=== PATIENT | female | born 1955 | race Caucasian/White ===

== ENCOUNTER 2018-11-18 07:44 | Emergency (ER) | payer OTHER ==
[~2018-11-18] VITALS: Ht 160 cm; Wt 90.7 kg
[~2018-11-18 07:44] MED LIST: ASPIRIN325 MG PO; ATENOLOL50 MG PO; CEFDINIR300 MG PO; ISOSORBIDE DINI20 MG PO; LISINOPRIL10 MG PO; MELOXICAM7.5 MG PO; METOPROLOL SUCC50 MG PO; NEXIUM40 MG; PRAVASTATIN SOD80 MG PO; SIMVASTATIN40 MG PO; ZOFRAN ODT4 MG SL
--- OUTSIDE RECORDS SUMMARY | 2018-11-18 07:46 | XMS REPORT | Summary of Care ---
Author Organization Unknown Address Unknown Phone Unavailable Encounter HQ Didi(JAYME) [id number] Date(s): 09/30/14 - 09/30/14 [facility] [address] [address] - [facility] Discharge Diagnosis: Wound infection Discharge Disposition: Home Physician Attending: Eldon Earl MD Reason for Visit CHECK UP STICHES Vital Signs Most recent to 1 2 oldest [Reference Range]: Height 160.02 cm (09/30/14 1:39 PM) Temperature Oral 97.9 DegF 97.9 DegF [96.4-99.1 DegF] (09/30/14 3:30 PM) (09/30/14 1:39 PM) Systolic Blood 145 mmHg 161 mmHg Pressure [90-140 *HI* *HI* mmHg] (09/30/14 3:30 PM) (09/30/14 1:39 PM) Diastolic Blood 85 mmHg 108 mmHg Pressure [60-90 (09/30/14 3:30 PM) *HI* mmHg] (09/30/14 1:39 PM) Respiratory Rate 18 BRMIN 18 BRMIN [14-20 BRMIN] (09/30/14 3:30 PM) (09/30/14 1:39 PM) Peripheral Pulse 85 bpm 92 bpm Rate [60-100 bpm] (09/30/14 3:30 PM) (09/30/14 1:39 PM) Weight 90.909 kg (09/30/14 1:39 PM) Body Mass Index 35.5 m2 (09/30/14 1:39 PM) Problem List Condition Effective Dates Status Health Status Informant Anxiety(Confirmed) Resolved COPD(Confirmed) Resolved Hypercholesteremia(C Resolved onfirmed) Hypertension(Confirm Resolved ed) Myocardial Resolved infarction(Confirmed ) Allergies, Adverse Reactions, Alerts Substance Reaction Severity Status penicillins Active tetanus toxoid Active Medications Bactrim DS oral tablet 1 tab, PO, BID, # 28 tab, 0 Refill(s) Start Date: 09/30/14 Stop Date: 10/14/14 Status: Ordered Medications Administered During Your Visit No data available for this section Immunizations No data available for this section Social History Social History Type Response Smoking Status Current every day smoker, Type: Cigarettes, Exposure to Tobacco Smoke None, Cigarette Smoking Last 365 Days Yes, Reg Smoking Cessation Counseling No
--- OUTSIDE RECORDS SUMMARY | 2018-11-18 07:46 | XMS REPORT | Summary of Care ---
Author Author [facility] Organization [facility] Address Unknown Phone Unavailable Encounter KLEBER Tolbert(JAYME) [id number] Date(s): 06/25/17 - 06/25/17 [facility] [address] [place] [address]- Discharge Diagnosis: Chronic lower urinary tract infection Discharge Disposition: Home or Self Care Attending Physician: Sesar Amaral DO Vital Signs Most recent to 1 2 oldest [Reference Range]: Temperature Oral 98.5 DegF 98.5 DegF [96.4-99.1 DegF] (06/25/17 2:20 PM) (06/25/17 10:24 AM) Blood Pressure 168/105 mmHg 137/92 mmHg [90-140/60-90 mmHg] *HI* (06/25/17 10:24 AM) (06/25/17 2:20 PM) Respiratory Rate 20 BRMIN 17 BRMIN [14-20 BRMIN] (06/25/17 2:20 PM) (06/25/17 10:24 AM) Peripheral Pulse 94 bpm 120 bpm Rate [60-100 bpm] (06/25/17 2:20 PM) *HI* (06/25/17 10:24 AM) Weight 93.182 kg (06/25/17 10:24 AM) Problem List Condition Effective Dates Status Health Status Informant Anxiety(Confirmed) Resolved COPD(Confirmed) Resolved Hypercholesteremia(C Resolved onfirmed) Hypertension(Confirm Resolved ed) Myocardial Resolved infarction(Confirmed ) Allergies, Adverse Reactions, Alerts Substance Reaction Severity Status penicillins Active tetanus toxoid Active Medications ciprofloxacin 500 mg oral tablet 500 mg=1 tab, PO, Q12H, X 10 day, # 20 tab, 0 Refill(s) Start Date: 06/25/17 Stop Date: 07/05/17 Status: Ordered Debrox 6.5% otic solution 5 drp, Route: LEFT EAR, TID, Drug form: SOLN, Start date: 06/25/17 17:00:00 CDT, Duration: 30 day, Stop date: 07/25/17 13:00:00 CDT Notes: (carbamide peroxide 6.5% 15 ml otic SOLN) (Same As: Debrox) Start Date: 06/25/17 Stop Date: 06/25/17 Status: Discontinued Debrox 6.5% otic solution 5 drp, LEFT EAR, TID, X 7 day, # 30 mL, 0 Refill(s) Start Date: 06/25/17 Stop Date: 07/02/17 Status: Ordered Keflex 500 mg oral capsule 500 mg=1 cap, PO, BID, X 10 day, # 20 cap, 0 Refill(s) Start Date: 06/25/17 Stop Date: 07/05/17 Status: Ordered Pyridium 100 mg oral tablet 100 mg=1 tab, PO, TID, PRN Dysuria, X 2 day, # 6 tab, 0 Refill(s) Start Date: 06/25/17 Stop Date: 06/27/17 Status: Completed Pyridium 200 mg oral tablet 200 mg=1 tab, PO, TID, PRN Dysuria, X 2 day, # 6 tab, 0 Refill(s) Start Date: 06/25/17 Stop Date: 06/27/17 Status: Completed Results ELECTROLYTES Most recent to 1 oldest [Reference Range]: Sodium Lvl [135-145 142 mEq/L mEq/L] (06/25/17 11:35 AM) Potassium Lvl 3.6 mEq/L [3.5-5.1 mEq/L] (06/25/17 11:35 AM) Chloride Lvl [95-109 108 mEq/L mEq/L] (06/25/17 11:35 AM) CO2 [24-32 mEq/L] 26 mEq/L (06/25/17 11:35 AM) AGAP [10.0-20.0 11.6 mEq/L mEq/L] (06/25/17 11:35 AM) CHEM PANEL Most recent to 1 oldest [Reference Range]: Creatinine Lvl 0.87 mg/dL [0.50-1.40 mg/dL] (06/25/17 11:35 AM) eGFR 73 mL/min/1.73m2 1 *NA* (06/25/17:35 AM) BUN [7-22 mg/dL] 14 mg/dL (06/25/17 11:35 AM) B/C Ratio [6-25] 16 (06/25/17 11:35 AM) Glucose Lvl [70-99 98 mg/dL mg/dL] (06/25/17:35 AM) Total Protein 7.9 g/dL [6.4-8.4 g/dL] (06/25/17 11:35 AM) Albumin Lvl [3.5-5.0 3.3 g/dL g/dL] *LOW* (06/25/17:35 AM) Globulin [2.7-4.2 4.6 g/dL g/dL] *HI* (06/25/17:35 AM) A/G Ratio [0.7-1.6] 0.7 (06/25/17:35 AM) Calcium Lvl 9.5 mg/dL [8.5-10.5 mg/dL] (06/25/17 11:35 AM) ALT [0-65 unit/L] 25 unit/L (06/25/17 11:35 AM) AST [0-37 unit/L] 27 unit/L (06/25/17 11:35 AM) Alk Phos [39-136 105 unit/L unit/L] (06/25/17 11:35 AM) Bili Total [0.2-1.3 0.4 mg/dL mg/dL] (06/25/17 11:35 AM) 1Result Comment: The eGFR is calculated using the CKD-EPI formula. In most young, healthy individuals the eGFR will be >90 mL/min/1.73m2. The eGFR declines with age. An eGFR of 60-89 may be normal in some populations, particularly the elderly, for whom the CKD-EPI formula has not been extensively validated. Use of the eGFR is not recommended in the following populations: Individuals with unstable creatinine concentrations, including patients and those with serious co-morbid conditions. Patients with extremes in muscle mass or diet. The data above are obtained from the National Kidney Disease Education Program ( NKDEP) which additionally recommends that when the eGFR is used in patients with extremes of body mass index for purposes of drug dosing, the eGFR should be mul tiplied by the estimated BMI. URINE AND STOOL Most recent to 1 oldest [Reference Range]: UA Turbidity [Clear] Marked *ABN* (06/25/17 11:35 AM) UA Color [Yellow] Yellow *NA* (06/25/17 11:35 AM) UA pH [5.0-8.0] 6.0 (06/25/17 11:35 AM) UA Spec Grav 1.026 [<=1.030] (06/25/17 11:35 AM) UA Glucose [Negative Negative mg/dL mg/dL] *NA* (06/25/17 11:35 AM) UA Blood [Negative] Small *ABN* (06/25/17 11:35 AM) UA Ketones [Negative Negative mg/dL mg/dL] *NA* (06/25/17 11:35 AM) UA Protein [Negative 100 mg/dL mg/dL] *ABN* (06/25/17 11:35 AM) UA Urobilinogen <=1.0 mg/dL [0.1-1.0 mg/dL] *NA* (06/25/17 11:35 AM) UA Bili [Negative] Negative *NA* (06/25/17 11:35 AM) UA Leuk Est Large [Negative] *ABN* (06/25/17 11:35 AM) UA Nitrite Positive [Negative] *ABN* (06/25/17 11:35 AM) UA WBC [0-5 /HPF] >182 /HPF *HI* (06/25/17 11:35 AM) UA RBC [0-2 /HPF] 22 /HPF *HI* (06/25/17 11:35 AM) UA Bacteria [None Many /HPF Seen /HPF] *ABN* (06/25/17 11:35 AM) UA Sq Epi [Few /LPF] Many /LPF *ABN* (06/25/17 11:35 AM) UA Mucus [None Seen Few /LPF /LPF] *NA* (06/25/17 11:35 AM) UA [place] Yeast [None Occasional /HPF Seen /HPF] *ABN* (06/25/17 11:35 AM) HEMATOLOGY Most recent to 1 oldest [Reference Range]: WBC [3.7-10.4 K/CMM] 8.3 K/CMM (06/25/17 11:35 AM) RBC [4.20-5.40 4.21 M/CMM M/CMM] (06/25/17 11:35 AM) Hgb [12.0-16.0 g/dL] 13.0 g/dL (06/25/17:35 AM) Hct [36.0-48.0 %] 38.7 % (06/25/17:35 AM) MCV [80.0-98.0 fL] 91.7 fL (06/25/17:35 AM) MCH [27.0-31.0 pg] 30.8 pg (06/25/17:35 AM) MCHC [32.0-36.0 33.6 g/dL g/dL] (06/25/17 11:35 AM) RDW [11.5-14.5 %] 13.0 % (06/25/17:35 AM) Platelet [133-450 268 K/CMM K/CMM] (06/25/17 11:35 AM) MPV [7.4-10.4 fL] 8.6 fL (06/25/17 11:35 AM) Segs [45.0-75.0 %] 48.9 % (06/25/17 11:35 AM) Lymphocytes 36.8 % [20.0-40.0 %] (06/25/17 11:35 AM) Monocytes [2.0-12.0 8.4 % %] (06/25/17 11:35 AM) Eosinophils [0.0-4.0 5.2 % %] *HI* (06/25/17 11:35 AM) Basophils [0.0-1.0 0.7 % %] (06/25/17 11:35 AM) Segs-Bands # 4.0 K/CMM [1.5-8.1 K/CMM] (06/25/17 11:35 AM) Lymphocytes # 3.0 K/CMM [1.0-5.5 K/CMM] (06/25/17 11:35 AM) Monocytes # [0.0-0.8 0.7 K/CMM K/CMM] (06/25/17 11:35 AM) Eosinophils # 0.4 K/CMM [0.0-0.5 K/CMM] (06/25/17 11:35 AM) Basophils # [0.0-0.2 0.1 K/CMM K/CMM] (06/25/17 11:35 AM) Immunizations No data available for this section Procedures No data available for this section Social History Social History Type Response Smoking Status Current every day smoker; Type: Cigarettes; Tobacco use per day: 20; Exposure to Tobacco Smoke None; Cigarette Smoking Last 365 Days Yes; Reg Smoking Cessation Counseling No Assessment and Plan No data available for this section
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
--- OUTSIDE RECORDS SUMMARY | 2018-11-18 07:46 | XMS REPORT | Summary of Care ---
Author Author [facility] Organization [facility] Address Unknown Phone Unavailable Encounter HQ Didi(FIN) [id number] Date(s): 04/12/18 - 04/12/18 [facility] [address] [place] [address]- Encounter Diagnosis Hip osteoarthritis (Discharge Diagnosis) - 04/12/18 Chronic right hip pain (Discharge Diagnosis) - 04/12/18 Discharge Disposition: Home or Self Care Attending Physician: Adolph Rosa MD Vital Signs Most recent to 1 2 oldest [Reference Range]: Height 160.02 cm (04/12/18 1:55 PM) Temperature Oral 98.4 DegF [96.4-99.1 DegF] (04/12/18 1:55 PM) Blood Pressure 165/95 mmHg 130/83 mmHg [90-140/60-90 mmHg] *HI* (04/12/18 1:55 PM) (04/12/18 4:21 PM) Respiratory Rate 17 BRMIN 18 BRMIN [14-20 BRMIN] (04/12/18 4:21 PM) (04/12/18 1:55 PM) Peripheral Pulse 67 bpm 71 bpm Rate [60-100 bpm] (04/12/18 4:21 PM) (04/12/18 1:55 PM) Weight 90.909 kg (04/12/18 1:55 PM) Body Mass Index 35.5 m2 (04/12/18 1:55 PM) Problem List Condition Effective Dates Status Health Status Informant Anxiety(Confirmed) Resolved COPD(Confirmed) Resolved Hypercholesteremia(C Resolved onfirmed) Hypertension(Confirm Resolved ed) Myocardial Resolved infarction(Confirmed ) Allergies, Adverse Reactions, Alerts Substance Reaction Severity Status penicillins Active tetanus toxoid Active Medications Colace 100 mg oral capsule 100 mg=1 cap, PO, BID, PRN Constipation, # 20 cap, 0 Refill(s) Start Date: 04/12/18 Status: Ordered ketOROLAC 30 mg, Route: IM, Drug form: INJ, ONCE, Dosing Weight 90.909, kg, Priority: STAT , Start date: 04/12/18 15:33:00 CDT, Stop date: 04/12/18 15:33:00 CDT Start Date: 04/12/18 Stop Date: 04/12/18 Status: Completed Tylenol with Codeine #3 oral tablet 1 tab, PO, Q4H, PRN Pain, X 2 day, # 30 tab, 0 Refill(s) Start Date: 04/12/18 Stop Date: 04/14/18 Status: Completed Results No data available for this section Immunizations No data available for this section Procedures No data available for this section Social History Social History Type Response Smoking Status Current every day smoker; Type: Cigarettes; Exposure to Tobacco Smoke None; Cigarette Smoking Last 365 Days Yes; Reg Smoking Cessation Counseling No; Tobacco use per day: 20; entered on: 04/12/18 Assessment and Plan No data available for this section
--- OUTSIDE RECORDS SUMMARY | 2018-11-18 07:46 | XMS REPORT | Summary of Care ---
Author Author [facility] Organization [facility] Address Unknown Phone Unavailable Encounter HQ Didi(FIN) [id number] Date(s): 10/31/17 - 11/01/17 [facility] [address] [place] [address]- Encounter Diagnosis Chronic hip pain (Discharge Diagnosis) - 11/01/17 Pain in right hip (Final) - 11/06/17 Other chronic pain (Final) - Nicotine dependence, cigarettes, uncomplicated (Final) - Discharge Disposition: Home or Self Care Attending Physician: Mohinder Wharton MD Vital Signs Most recent to 1 2 oldest [Reference Range]: Height 160.02 cm (10/31/17 8:29 PM) Temperature Oral 98.3 DegF 98.1 DegF [96.4-99.1 DegF] (11/01/17 12:49 AM) (10/31/17 8:29 PM) Blood Pressure 151/86 mmHg 159/97 mmHg [90-140/60-90 mmHg] *HI* *HI* (11/01/17 12:49 AM) (10/31/17 8:29 PM) Respiratory Rate 16 BRMIN 18 BRMIN [14-20 BRMIN] (11/01/17 12:49 AM) (10/31/17 8:29 PM) Peripheral Pulse 71 bpm 76 bpm Rate [60-100 bpm] (11/01/17 12:49 AM) (10/31/17 8:29 PM) Weight 106.818 kg (10/31/17 8:29 PM) Body Mass Index 41.72 m2 (10/31/17 8:29 PM) Problem List Condition Effective Dates Status Health Status Informant Anxiety(Confirmed) Resolved COPD(Confirmed) Resolved Hypercholesteremia(C Resolved onfirmed) Hypertension(Confirm Resolved ed) Myocardial Resolved infarction(Confirmed ) Allergies, Adverse Reactions, Alerts Substance Reaction Severity Status penicillins Active tetanus toxoid Active Medications acetaminophen-codeine #3 1 tab, Route: PO, Dosing Weight 106.818, kg, ONCE, STAT, Start date: 11/01/17 1: 10:00 STONE HAND, Stop date: 11/01/17 1:10:00 STONE HAND Start Date: 11/01/17 Stop Date: 11/01/17 Status: Completed dexamethasone 10 mg, Route: IM, ONCE, Dosing Weight 106.818, kg, Priority: STAT, Start date: 0 11/01/17 1:09:00 STONE HAND, Stop date: 11/01/17 1:09:00 STONE HAND Start Date: 11/01/17 Stop Date: 11/01/17 Status: Completed ketOROLAC 60 mg, Route: IM, ONCE, Dosing Weight 106.818, kg, Priority: STAT, Start date: 0 11/01/17 1:09:00 STONE HAND, Stop date: 11/01/17 1:09:00 STONE HAND Start Date: 11/01/17 Stop Date: 11/01/17 Status: Completed naproxen 375 mg oral enteric coated delayed-release tablet 375 mg=1 tab, PO, BID, PRN as needed for pain, X 5 day, # 10 tab, 0 Refill(s) Start Date: 11/01/17 Stop Date: 11/06/17 Status: Completed Ultram 50 mg oral tablet 50 mg=1 tab, PO, Q6H, PRN pain, X 4 day, # 16 tab, 0 Refill(s) Start Date: 11/01/17 Stop Date: 11/05/17 Status: Completed Results No data available for this section Immunizations No data available for this section Procedures No data available for this section Social History Social History Type Response Smoking Status Type: Cigarettes; Exposure to Tobacco Smoke None; Cigarette Smoking Last 365 Days Yes; Reg Smoking Cessation Counseling No; Current every day smoker; Tobacco use per day: 20; entered on: 11/01/17 Assessment and Plan No data available for this section
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
--- OUTSIDE RECORDS SUMMARY | 2018-11-18 07:46 | XMS REPORT | Summary of Care ---
Author Author [facility] Organization [facility] Address Unknown Phone Unavailable Encounter HQ Didi(JAYME) [id number] Date(s): 09/15/17 - 09/15/17 [facility] [id number] [place] [address]- Discharge Diagnosis: Sprain of ligaments of lumbar spine, initial encounter Discharge Disposition: Home or Self Care Attending Physician: Mk Cooley DO Vital Signs Most recent to 1 oldest [Reference Range]: Temperature Oral 98.2 DegF [96.4-99.1 DegF] (09/15/17 5:57 AM) Blood Pressure 136/78 mmHg [90-140/60-90 mmHg] (09/15/17 5:57 AM) Respiratory Rate 16 BRMIN [14-20 BRMIN] (09/15/17 5:57 AM) Peripheral Pulse 67 bpm Rate [60-100 bpm] (09/15/17 5:57 AM) Problem List Condition Effective Dates Status Health Status Informant Anxiety(Confirmed) Resolved COPD(Confirmed) Resolved Hypercholesteremia(C Resolved onfirmed) Hypertension(Confirm Resolved ed) Myocardial Resolved infarction(Confirmed ) Allergies, Adverse Reactions, Alerts Substance Reaction Severity Status penicillins Active tetanus toxoid Active Medications dexamethasone 8 mg, Route: IM, ONCE, Dosing Weight 93.182, kg, Priority: STAT, Start date: 01/27 7:34:00 [employer], Stop date: 09/15/17 7:34:00 [employer] Start Date: 09/15/17 Stop Date: 09/15/17 Status: Completed Flexeril 10 mg, Route: PO, ONCE, Dosing Weight 93.182, kg, Priority: STAT, Start date: 7:34:00 [employer], Stop date: 09/15/17 7:34:00 [employer] Start Date: 09/15/17 Stop Date: 09/15/17 Status: Completed Flexeril 10 mg oral tablet 10 mg, PO, TID, PRN Muscle Spasm, X 7 day, # 30 tab, 0 Refill(s) Start Date: 09/15/17 Stop Date: 09/22/17 Status: Ordered ketOROLAC 10 mg oral tablet 10 mg=1 tab, PO, TID, PRN Pain, X 5 day, # 15 tab, 0 Refill(s) Start Date: 09/15/17 Stop Date: 09/20/17 Status: Ordered ketOROLAC 30 mg/mL injectable solution 30 mg, Route: IM, Drug form: INJ, ONCE, Dosing Weight 93.182, kg, Priority: STAT , Start date: 09/15/17 7:34:00 [employer], Stop date: 09/15/17 7:34:00 [employer] Start Date: 09/15/17 Stop Date: 09/15/17 Status: Completed meclizine 50 mg, Route: PO, Drug form: TAB, ONCE, Dosing Weight 93.182, kg, Priority: STAT , Start date: 09/15/17 8:58:00 [employer], Stop date: 09/15/17 8:58:00 [employer] Start Date: 09/15/17 Stop Date: 09/15/17 Status: Discontinued Ogema 5/325 oral tablet 1 tab, Route: PO, Drug Form: TAB, Dosing Weight 93.182, kg, ONCE, STAT, Start da te: 09/15/17 7:34:00 [employer], Stop date: 09/15/17 7:34:00 [employer] Start Date: 09/15/17 Stop Date: 09/15/17 Status: Completed Results No data available for this section Immunizations No data available for this section Procedures No data available for this section Social History Social History Type Response Smoking Status Current every day smoker; Type: Cigarettes; Exposure to Tobacco Smoke None; Cigarette Smoking Last 365 Days Yes; Reg Smoking Cessation Counseling No; Tobacco use per day: 20; Assessment and Plan No data available for this section
[2018-11-18] MEDS ORDERED: KETOROLAC TROMETHAMINE 60 MG/2 ML VIAL IM ONE (08:15)
[2018-11-18] MEDS ORDERED: ULTRAM50 MG PO (08:50)
[2018-11-18] MEDS ORDERED: HYDROCODONE/APAP 10MG-325MG TAB PO ONE (09:00)
[2018-11-18 09:24] VITALS: BP 129/90
== END 2018-11-18 09:10 | disposition home or self-care (01) ==
LOC: ER 07:44
DX: M25.561 Pain in right knee (principal); G89.29 Other chronic pain
CPT/HCPCS: 99283; J1885

== ENCOUNTER 2019-02-07 06:16 | Emergency (ER) | payer OTHER ==
[~2019-02-07] VITALS: Ht 160 cm; Wt 90.7 kg
[~2019-02-07 06:16] MED LIST changes: +ULTRAM50 MG PO
--- OUTSIDE RECORDS SUMMARY | 2019-02-07 06:18 | XMS REPORT | Continuity of Care Document ---
Author Author [facility] Interface Address Unknown Phone Unavailable Problems Problem Status Onset Date Classification Date Reported Comments Source Medications Medication Details Route Status Patient Instructions Ordering Provider Order Date Source Tramadol Hcl (Ultram) 50 Mg Tablet Every 6 Hours as needed for Pain Active Munir 11/18/2018 [facility] Atenolol 50 Mg Tablet, 100 Mg Oral Daily Active 08/10/2017 [facility] Cefdinir (Omnicef) 300 Mg Capsule, 300 Mg Oral Twice A Day Active 08/10/2017 [facility] Ondansetron (Zofran Odt) 4 Mg Tab.rapdis, 4 Mg Sublingual Every 6 Hours as needed for Nausea Active 08/10/2017 [facility] Simvastatin 40 Mg Tablet, 40 Mg Oral Bedtime Active 04/21/2017 [facility] Aspirin 325 Mg Tablet Daily Active [facility] Esomeprazole Magnesium (Nexium) 40 Mg Capsule. Active PROTONIX THERAPEUTIC SUBSTITUTE FOR NEXIUM PER [facility] Isosorbide Dinitrate 20 Mg Tablet Three Times A Day Active [facility] Lisinopril 10 Mg Tablet Daily Active [facility] Meloxicam 7.5 Mg Tablet Daily Active [facility] Metoprolol Succinate 50 Mg Tab.er.24h Twice A Day Active [facility] Pravastatin Sodium 80 Mg Tablet Bedtime Active THERAPEUTICALLY SUBSTITUTED WITH SIMVASTATIN 40MG [facility] Allergies, Adverse Reactions, Alerts Substance Category Reaction Severity Reaction type Status Date Reported Comments Source Penicillin RASH Unknown Allergy to Substance Active 11/18/2018 [facility] Tetanus Vaccines and Toxoid RASH Unknown Allergy to Substance Active 11/18/2018 [facility] Immunizations Immunization Date Given Site Status Last Updated Comments Source Results Order Name Results Value Reference Range Date Interpretation Comments Source Vital Signs Vital Sign Value Date Comments Source Encounters Location Location Details Encounter Type Encounter Number Reason For Visit Attending Provider ADM Date DC Date Status Source Departed Emergency Room [id number] JAYLA MICHELLE MD 11/18/2018 11/18/2018 [facility] Procedures Procedure Code Date Perfomer Comments Source
== END 2019-02-07 06:39 | disposition home or self-care (01) ==
LOC: ER 06:16
DX: M54.41 Lumbago with sciatica, right side (principal); G89.29 Other chronic pain; F41.9 Anxiety disorder, unspecified; E78.5 Hyperlipidemia, unspecified; E78.00 Pure hypercholesterolemia, unspecified; I25.2 Old myocardial infarction; F17.210 Nicotine dependence, cigarettes, uncomplicated
CPT/HCPCS: 99283

== ENCOUNTER 2022-03-29 09:25 | Emergency (ER) | payer MEDICARE ==
[~2022-03-29] VITALS: Ht 162.6 cm; Wt 72.6 kg
[2022-03-29] MEDS ORDERED: LIDOCAINE 4% PATCH TP STA (09:40)
[2022-03-29] MEDS ORDERED: KETOROLAC TROMETHAMINE 30 MG/ML VIAL IM ONE (09:45)
[2022-03-29] MEDS ORDERED: ACETAMINOPHEN 325 MG TAB PO ONE (09:45)
[2022-03-29] MEDS ORDERED: LIDOCAINE PAIN1 EACH EXT (11:36)
[2022-03-29] MEDS ORDERED: IBUPROFEN400 MG PO (11:36)
[2022-03-29] MEDS ORDERED: METHOCARBAMOL500 MG PO (11:36)
== END 2022-03-29 11:51 | disposition home or self-care (01) ==
LOC: ER 09:37
DX: M47.816 Spondylosis without myelopathy or radiculopathy, lumbar region (principal); I10 Essential (primary) hypertension; I25.2 Old myocardial infarction; E78.5 Hyperlipidemia, unspecified; W19.XXXA Unspecified fall, initial encounter; Z88.7 Allergy status to serum and vaccine; Z88.0 Allergy status to penicillin; Z79.82 Long term (current) use of aspirin
CPT/HCPCS: 72100; 99283; J1885

== ENCOUNTER 2022-05-02 10:58 | Emergency (ER) | payer MEDICARE ==
[~2022-05-02] VITALS: Ht 160 cm; Wt 75.7 kg
[~2022-05-02 10:58] MED LIST changes: +IBUPROFEN400 MG PO; +LIDOCAINE PAIN1 EACH EXT; +METHOCARBAMOL500 MG PO
[2022-05-02] MEDS ORDERED: DICYCLOMINE HCL 20 MG TAB PO ONE (12:00)
[2022-05-02 12:15] LABS: BASOPHILS # (AUTO) 0.1 (0.0-0.1); BASOPHILS % 0.6 % (0.0-1.0); EOSINOPHILS # (AUTO) 0.3 (0.0-0.4); EOSINOPHILS % 3.4 % (0.0-6.0); HEMATOCRIT 37.2 % (34.2-44.1); HEMOGLOBIN 12.1 g/dL (12.0-16.0); LYMPHOCYTES # (AUTO) 3.6 (1.0-3.2); LYMPHOCYTES % 36.1 % (18.0-39.1); MEAN CORPUSCULAR HEMOGLOBIN 31.2 pg (28-32); MEAN CORPUSCULAR HGB CONC 32.5 g/dL (31-35); MEAN CORPUSCULAR VOLUME 95.9 fL (81-99); MONOCYTES # (AUTO) 0.8 (0.2-0.8); MONOCYTES % 8.3 % (4.4-11.3); NEUTROPHILS # (AUTO) 5.2 (2.1-6.9); NEUTROPHILS % 51.4 % (38.7-80.0); PLATELET COUNT 332 x10e3/uL (140-360); RED BLOOD COUNT 3.88 x10e6/uL (3.6-5.1); RED CELL DISTRIBUTION WIDTH 12.6 % (11.7-14.4)
[2022-05-02 12:17] LABS: CLARITY,URINE CLEAR (CLEAR); COLOR,URINE YELLOW (YELLOW); KETONES,URINE NEGATIVE (NEGATIVE); LEUKOCYTE ESTERASE ,URINE SMALL (NEGATIVE); NITRITE,URINE NEGATIVE (NEGATIVE); PROTEIN,URINE DIPSTICK NEGATIVE (NEGATIVE); URINE UROBILINOGEN 0.2 mg/dL (0.2 - 1)
[2022-05-02 12:44] LABS: BACTERIA,URINE FEW /HPF; EPITHELIAL CELLS,URINE FEW /LPF; RBC,URINE 0-5 /HPF (0-5); WBC,URINE (MAN) >50 /HPF (0-5)
[2022-05-02 12:54] LABS: ALBUMIN 3.4 g/dL (3.5-5.0); ALBUMIN/GLOBULIN RATIO 0.7 (0.8-2.0); ANION GAP 12.6 mmol/L (8-16); CALCIUM 9.4 mg/dL (8.4-10.2); CREATININE, SERUM 1.12 mg/dL (0.57-1.11); POTASSIUM 4.6 mmol/L (3.5-5.1)
[2022-05-02] MEDS ORDERED: IOPAMIDOL 370 MG/ML 100 ML INFUS..BTL INJ ONE (13:22)
[2022-05-02] MEDS ORDERED: SODIUM CHLORIDE 0.9% 1000ML 1,000 ML IV ONE (13:45)
[2022-05-02] MEDS ORDERED: CEFDINIR 300 MG CAP PO ONE (13:45)
[2022-05-02] MEDS ORDERED: CLONIDINE HCL 0.2 MG TAB PO ONE (13:45)
[2022-05-02] MEDS ORDERED: ONDANSETRON ODT4 MG PO (14:21)
[2022-05-02] MEDS ORDERED: DICYCLOMINE HCL20 MG PO (14:21)
[2022-05-02] MEDS ORDERED: CEFDINIR300 MG PO (14:21)
[2022-05-02] MEDS ORDERED: NEXIUM20 MG PO (14:21)
== END 2022-05-02 14:53 | disposition home or self-care (01) ==
LOC: ER 11:02
DX: R10.11 Right upper quadrant pain (principal); N30.90 Cystitis, unspecified without hematuria; I10 Essential (primary) hypertension; J44.9 Chronic obstructive pulmonary disease, unspecified; E78.5 Hyperlipidemia, unspecified; E78.00 Pure hypercholesterolemia, unspecified; I25.2 Old myocardial infarction
CPT/HCPCS: 36415; 74018; 74177; 80053; 81001; 83690; 84484; 85025; 87086; 87186; 99284; J7030; Q9967

== ENCOUNTER 2023-03-04 07:38 | Emergency (ER) | payer MEDICARE ==
[~2023-03-04] VITALS: Ht 160 cm; Wt 86.2 kg
[~2023-03-04 07:38] MED LIST changes: +DICYCLOMINE HCL20 MG PO; +NEXIUM20 MG PO; +ONDANSETRON ODT4 MG PO
[2023-03-04 08:43] LABS: BASOPHILS % 0.4 % (0.0-1.0); EOSINOPHILS # (AUTO) 0.4 (0.0-0.4); EOSINOPHILS % 3.6 % (0.0-6.0); HEMOGLOBIN 12.2 g/dL (12.0-16.0); LYMPHOCYTES # (AUTO) 3.2 (1.0-3.2); LYMPHOCYTES % 33.2 % (18.0-39.1); MEAN CORPUSCULAR HEMOGLOBIN 31.1 pg (28-32); MEAN CORPUSCULAR VOLUME 94.4 fL (81-99); MONOCYTES # (AUTO) 0.8 (0.2-0.8); MONOCYTES % 8.3 % (4.4-11.3); NEUTROPHILS # (AUTO) 5.3 (2.1-6.9); NEUTROPHILS % 54.4 % (38.7-80.0); PLATELET COUNT 321 x10e3/uL (140-360); RED BLOOD COUNT 3.92 x10e6/uL (3.6-5.1); RED CELL DISTRIBUTION WIDTH 13.2 % (11.7-14.4)
[2023-03-04 08:58] LABS: ALBUMIN 3.5 g/dL (3.5-5.0); ALBUMIN/GLOBULIN RATIO 0.8 (0.8-2.0); ANION GAP 12.6 mmol/L (8-16); CALCIUM 10.1 mg/dL (8.4-10.2); CREATININE, SERUM 1.18 mg/dL (0.57-1.11); POTASSIUM 4.6 mmol/L (3.5-5.1)
[2023-03-04] MEDS ORDERED: NAPROXEN250 MG PO (14:05)
[2023-03-04 14:18] VITALS: O2SAT 98
== END 2023-03-04 14:22 | disposition home or self-care (01) ==
LOC: ER 07:51
DX: M54.12 Radiculopathy, cervical region (principal); I10 Essential (primary) hypertension; E78.5 Hyperlipidemia, unspecified; J44.9 Chronic obstructive pulmonary disease, unspecified; E78.00 Pure hypercholesterolemia, unspecified; I25.2 Old myocardial infarction
CPT/HCPCS: 36415; 70450; 71045; 72125; 80053; 83690; 84484; 85025; 93005

== ENCOUNTER 2025-07-08 13:55 | Emergency (ER) | payer MEDICARE ==
[~2025-07-08] VITALS: Ht 160 cm; Wt 88.5 kg
[~2025-07-08 13:55] MED LIST changes: +NAPROXEN250 MG PO
[2025-07-08 15:16] VITALS: PULSE 76; RESP 18; TEMP 98.3
[2025-07-08 16:40] LABS: BASOPHILS % 0.4 % (0.0-1.0); EOSINOPHILS % 1.4 % (0.0-6.0); LYMPHOCYTES % 31.5 % (18.0-39.1); MONOCYTES % 8.2 % (4.4-11.3); NEUTROPHILS % 58.2 % (38.7-80.0); RED CELL DISTRIBUTION WIDTH 13.0 % (11.7-14.4)
[2025-07-08] MEDS: Morphine 4mg INJECTION 4 MG/ML INJ IV ONE (16:40)
[2025-07-08] MEDS: ONDANSETRON HCL INJ 2MG/ML 2ML 2 MG/ML VIAL IV STA (16:40)
[2025-07-08] MEDS: SODIUM CHLORIDE 0.9% 1000ML 1,000 ML IV ONE (16:40)
[2025-07-08 17:14] LABS: EST GLOMERULAR FILTRATION RATE 44.0 ML/MIN (>=60)
[2025-07-08 19:04] LABS: LEUKOCYTE ESTERASE ,URINE NEGATIVE (NEGATIVE); PROTEIN,URINE DIPSTICK NEGATIVE (NEGATIVE); URINE UROBILINOGEN 0.2 mg/dL (0.2 - 1)
[2025-07-08 19:06] LABS: EPITHELIAL CELLS,URINE FEW /LPF; WBC,URINE (MAN) 0-5 /HPF (0-5)
[2025-07-08] MEDS ORDERED: ULTRAM 50MG50 MG PO (19:29)
[2025-07-08 20:11] VITALS: BP 174/100; O2SAT 99
== END 2025-07-08 19:44 | disposition home or self-care (01) ==
LOC: ER 15:59
DX: R10.32 Left lower quadrant pain (principal); N83.202 Unspecified ovarian cyst, left side; I10 Essential (primary) hypertension; J44.9 Chronic obstructive pulmonary disease, unspecified; E78.5 Hyperlipidemia, unspecified; E78.00 Pure hypercholesterolemia, unspecified; I25.2 Old myocardial infarction; F17.210 Nicotine dependence, cigarettes, uncomplicated
CPT/HCPCS: 36415; 74176; 76856; 80053; 81001; 83690; 85025; 93976; 99284; J2270; J2405; J7030